=== PATIENT | female | born 2000 | race Caucasian/White ===

== ENCOUNTER 2020-10-15 12:12 | Emergency (ER) | payer OTHER ==
[2020-10-15] MEDS ORDERED: HYDROCODONE/ACETAMINOPHEN 5-325 MG TABLET PO ONE ×2 (12:37→16:45)
--- NOTE | 2020-10-15 12:38 | ER Document Report ---
ED Medical Screen (RME) - General Chief Complaint: Abscess Stated Complaint: NEEDS ABSCESS DRAINED Time Seen by Provider: 10/15/20 12:35 Information source: Patient Notes: Patient presents complaining of a left-sided Bartholin gland abscess for the past 10 days. Patient states she had leftover Cipro and has been taking that for the past 3 days. Patient states that the lesion is about the size of a golf ball. I have greeted and performed a rapid initial assessment of this patient. A comprehensive ED assessment and evaluation of the patient, analysis of test results and completion of the medical decision making process will be conducted by additional ED providers. - Related Data Allergies/Adverse Reactions: No Known Allergies Allergy (Verified 10/15/20 12:33) Home Medications: cipro Past Medical History - Social History Chew tobacco use (# tins/day): No Frequency of alcohol use: None Drug Abuse: None Physical Exam - Vital signs Vitals: Temp Pulse Resp BP Pulse Ox 98.3 F 100 16 129/80 H 97 10/15/20 12:25 10/15/20 12:25 10/15/20 12:25 10/15/20 12:25 10/15/20 12:25 - General General appearance: Appears well, Alert In distress: None Notes: area not examined as patient is in triage Course - Vital Signs Vital signs: Temp Pulse Resp BP Pulse Ox 98.3 F 100 16 129/80 H 97 10/15/20 12:34 10/15/20 12:25 10/15/20 12:25 10/15/20 12:25 10/15/20 12:25
--- NOTE | 2020-10-15 17:31 | ER Document Report ---
ED GI/ - General Chief Complaint: Abscess Stated Complaint: NEEDS ABSCESS DRAINED Time Seen by Provider: 10/15/20 12:35 Mode of Arrival: Ambulatory Information source: Patient Notes: This 20-year-old female presents to emergency department with a history of a left labial swelling and pain over the past week and a half. Patient states that she has never had anything like this before she also noticed swelling in the left inguinal lymph nodes. She denies fever or vaginal discharge. - Related Data Allergies/Adverse Reactions: No Known Allergies Allergy (Verified 10/15/20 12:33) Home Medications: cipro Past Medical History - General Information source: Patient - Social History Smoking Status: Never Smoker Chew tobacco use (# tins/day): No Frequency of alcohol use: None Drug Abuse: None Family History: Reviewed & Not Pertinent Patient has homicidal ideation: No Review of Systems - Review of Systems Notes: Constitutional: Negative for fever. HENT: Negative for sore throat. Eyes: Negative for visual changes. Cardiovascular: Negative for chest pain. Respiratory: Negative for shortness of breath. Gastrointestinal: Negative for abdominal pain, vomiting or diarrhea. Genitourinary: See HPI Musculoskeletal: Negative for back pain. Skin: Negative for rash. Neurological: Negative for headaches, weakness or numbness. 10 point ROS negative except as marked above and in HPI. Physical Exam - Vital signs Vitals: Temp Pulse Resp BP Pulse Ox 98.3 F 100 16 129/80 H 97 10/15/20 12:25 10/15/20 12:25 10/15/20 12:25 10/15/20 12:25 10/15/20 12:25 - Notes Notes: PHYSICAL EXAMINATION: Physical Exam: General: Well-nourished well-developed 20-year-old female in no acute distress HEENT: NC/AT, pupils equal round and reactive to light, MM moist,nares clear, oropharynx clear, airway patent Neck: supple, no adenopathy, no masses. Good range of motion Lungs: clear, no wheezing, no rales no rhonchi CVS: Regular rate and rhythm no murmur gallop or rub Abdomen: Soft, active, nontender, no masses, no hepatosplenomegaly : Left labial area of swelling spontaneous draining. A serosanguineous drainage noted from the cystic site. ( patient notes that it began to drain spontaneously prior to my exam). Ext: No edema, clubbing or cyanosis. Neuro: Alert and responsive, moving all 4 extremities on command, cranial nerves intact, no focal findings Skin: Intact no open lesions, no rash PSYCH: Normal mood, normal affect. Course - Re-evaluation Re-evalutation: 10/15/20 17:27 Patient has cyst which has spontaneously ruptured and is draining. I will cover her with oral antibiotics, use warm water soaks, warm compress, follow-up with your [facility]. Patient acknowledges understanding of this plan and will follow up as an outpatient. - Vital Signs Vital signs: Temp Pulse Resp BP Pulse Ox 98.6 F 105 H 14 109/85 99 10/15/20 18:16 10/15/20 18:16 10/15/20 18:16 10/15/20 18:16 10/15/20 18:16 - Laboratory Results Critical Laboratory Results Reviewed: No Critical Results - Radiology Results Critical Radiology Results Reviewed: No Critical Results Discharge - Discharge Clinical Impression: Cyst of left Bartholin's gland Condition: Good Disposition: HOME, SELF-CARE Instructions: Abscess ([facility]) Additional Instructions: You were seen in the emergency department today for a Bartholin cyst infection. The cyst spontaneously drained and thus did not require any incision and drainage procedure. Please use warm compress to the area of pain and swelling, you may use Tylenol or ibuprofen for pain, please take the antibiotics as prescribed doxycycline 1 tablet twice daily for 10 days. Please schedule a follow-up with the [facility] doctor, sometimes the cyst infection will be recurrent and may need a prolonged period of antibiotic treatment. If symptoms are worsening or if you have other concerns you may return to the emergency department for further evaluation and treatment HOME CARE INSTRUCTIONS & INFORMATION: Thank you for choosing us for your medical needs. We hope you're satisfied with the care you received. After you leave, you must properly care for your problem and, at the same time, observe its progress. Any condition can change. Some illnesses can change rapidly over hours or days. If your condition worsens, return to the Emergency Department or see your physician promptly. ABOUT YOUR X-RAYS AND EKG'S: If you had an EKG or X-rays taken, they have been read by the Emergency Physician. The X-rays and EKG's will also be read by a Radiologist or [facility] Keeper within 24 hours. If discrepancies are noted, you will be notified by telephone. Please be certain the ED has a correct telephone number & address where you can be reached. Also, realize that some fractures or abnormalities do not show up on initial X-rays. If your symptoms continue, see your physician. ABOUT YOUR LABORATORY TEST: If you had laboratory tests, the results have been reviewed by the Emergency Physician. Some test results (for example cultures) may not be available for several days. You will be contacted if any test result shows you need additional treatment. Please be certain the ED has a correct telephone number and address where you can be reached. ABOUT YOUR MEDICATIONS: You will receive instructions on how to take your medicine on the prescription label you receive. Additional information may be provided by the Pharmacy. If you have questions afterwards, call the ED for clarification or further instructions. Some prescribed medications may cause drowsiness. Do not perform tasks such as driving a car or operating machinery without consulting your Pharmacist. If you feel you need a refill of pain medication, your condition will need re-evaluation. Please do not call for a refill of any medication. ABOUT YOUR SIGNATURE: Signature of this document acknowledges to followin. Understanding that you received emergency treatment and that you may be released before al medical problems are known or treated. Please be certain the ED has a correct phone number & address where you can be reached. 2. Acknowledgement that you will arrange for follow-up care as recommended. 3. Authorization for the Emergency Physician to provide information to your follow-up Physician in order to maximize your care. AT ANY TIME, IF YOUR SYMPTOMS CHANGE SIGNIFICANTLY OR WORSEN OR YOU DEVELOP NEW SYMPTOMS, RETURN TO THE EMERGENCY DEPARTMENT IMMEDIATELY FOR RE-EVALUATION. OUR GOAL IS TO PROVIDE EXCELLENT MEDICAL CARE! WE HOPE THAT WE HAVE MET YOUR EXPECTATIONS DURING YOUR EMERGENCY DEPARTMENT VISIT AND THAT YOU FEEL YOU HAVE RECEIVED EXCELLENT CARE! Prescriptions: Doxycycline Monohydrate 100 mg PO BID #20 capsule Ibuprofen [Ibu] 600 mg PO Q8 PRN #30 tablet PRN Reason: For Pain
[2020-10-15 18:19] VITALS: BP 109/85
== END 2020-10-15 18:21 | disposition home or self-care (01) ==
LOC: ER 12:12
DX: N75.0 Cyst of Bartholin's gland (principal)
CPT/HCPCS: 99283